=== PATIENT | female | born 1965 | race Caucasian/White ===

== ENCOUNTER 2018-02-27 05:55 | Day surgery (SDC) | payer OTHER ==
[~2018-02-27] VITALS: Ht 154.9 cm; Wt 90.7 kg
--- NOTE | ~2018-02-27 | OR ---
[facility] [address], [place] [address] Draft DATE OF OPERATION: SURGEON: Reny Aguilar MD PREOPERATIVE DIAGNOSES: Menometrorrhagia, endometrial polyp. POSTOPERATIVE DIAGNOSES: Menometrorrhagia and submucosal fibroid. PROCEDURES: Hysteroscopy and resection of submucosal fibroid. ANESTHESIA: General LMA. ESTIMATED BLOOD LOSS: 25 mL. DRAINS: None. INDICATIONS AND FINDINGS: The patient is a 52-year-old female, 4, para 3, AB 1, currently using control pills for control, who has been having abnormal bleeding over the past approximately five months. Evaluation in the office had an insufficient EMB. Hysterosonogram revealed a probable endometrial polyp. At the time of surgery, exam under anesthesia revealed a top-normal size uterus. It was regular in contour. Sounded to 11 cm. On hysteroscopy, the cavity was atrophic other than a large submucosal posterior fibroid. DESCRIPTION OF PROCEDURE: The patient was prepped and draped in the dorsal lithotomy position. A weighted speculum was placed. The anterior lip of the cervix was visualized and grasped with a single-tooth tenaculum. The cavity sounded to 11 cm. The endocervical canal was then dilated to a #8 dilator. The MyoSure device was placed and the cavity evaluated. The fibroid noted. Initially, the MyoSure Lite was tried, but this was insufficient to remove the fibroid as it was very firm. This was substituted for the MyoSure Lite. At this point, the device was used to down the fibroid. As it was decreased in size, it clearly came up from the wall of the uterus and at that point, it was very difficult to do any further excision as there was no way to apply any additional traction. Because PATIENT NAME: SO LANGFORD OPERATIVE REPORT DATE OF : 67 REPORT #: [id number] PHYSICIAN: RENY AGUILAR MD PCP: EVAN PITT DO REPORT IS CONFIDENTIAL AND NOT TO BE RELEASED WITHOUT AUTHORIZATION [facility] [address], [place] [address] Draft of that, the MyoSure device was removed and polyp forceps were introduced. Then, a small portion of fibroid was removed. The MyoSure device was replaced and there still appeared to be a fair amount of fibroid, which again was very difficult to remove with the reach. Following this, the MyoSure device was removed again and the polyp forceps introduced and a large piece of fibroid was removed. Following this, the procedure was terminated. She was observed and there was no evidence of ongoing heavy bleeding from the cervix. The tenaculum was removed and there was no bleeding from the tenaculum site. The procedure was then terminated with removal of the instruments and she was taken to recovery room in good condition. It was difficult to determine the fluid deficit, but was felt to be approximately 900 mL. Reny Aguilar MD PJW/MODL /[id number] cc: Evan Pitt DO Copies: EVAN PITT DO ~ PATIENT NAME: SO LANGFORDN OPERATIVE REPORT DATE OF : 67 REPORT #: [id number] PHYSICIAN: RENY AGUILAR MD PCP: EVAN PITT DO REPORT IS CONFIDENTIAL AND NOT TO BE RELEASED WITHOUT AUTHORIZATION
[~2018-02-27 05:55] MED LIST: ACAI BERRY500 MG PO; CENTRUM SILVER1 EAC3 PO; ECHINACEA125 MG PO; FLOMAX0.4 MG PO; FLONASE ALLERG9.9 ML NAS; MELATONIN5 M2 PO; NASACORT10.8 ML NAS; SRONYX1 EACH PO; SUDAFED PE PRE1 EAC1 PO; VITAMIN B-121000 MC3 PO; VITAMIN C500 M1 PO; VITAMIN D400 UNI4 PO
--- NOTE | 2018-02-27 08:36 | NUR ---
02/27/18 0836 Arely Liu 0820 PT ARRIVED TO PACU WITH ORAL AIRWAY IN PLACE. JAW TRUST NEEDED OFF AND ON TO MAINTAIN AIRWAY. PT REACTIVE TO PAINFUL STIMULI. RESP EVEN AND UNLABORED. 0825 PT WOKE TO PAINFUL STIMULI AND ORAL AIRWAY WAS REMOVED. PT DENIES PAIN AND NAUSEA. PT REORINETED TO PACU. 0827 MD AT BEDSIDE TALKING WITH PT. PT THEN BACK TO SLEEP. SMALL AMOUNT OF SNORING NOTED. 0831 PT O2 MASK REMOVED. O2 SAT 100%. PT MORE AWAKE AND TALKING TO RN. PT REPORTS NO PROBLEMS JUST FEELS "SLEEPY"
--- NOTE | 2018-02-27 08:58 | NUR ---
ICED WATER, COFFEE AND PUDDING GIVEN. CALL LIGHT W/IN REACH. SPOUSE @ BS.
[2018-02-27] MEDS ORDERED: MOTRIN IB200 MG PO (09:20)
[2018-02-27] MEDS ORDERED: NORCO 5-325 TA1 EACH PO (09:20)
--- NOTE | 2018-02-27 09:54 | NUR ---
amb to br voids 300mls pinkish urine. light cramping only. scant blood on pad.
== END 2018-02-27 10:10 | disposition home or self-care (01) ==
LOC: DS 05:55
PROVIDERS: Obstetrics & Gynecology
PROC: 0UB98ZZ Excision of Uterus, Via Natural or Artificial Opening Endoscopic (ICD-10-PCS; principal; 2018-02-27 06:45)
DX: D25.0 Submucous leiomyoma of uterus (principal); E66.9 Obesity, unspecified; G47.33 Obstructive sleep apnea (adult) (pediatric); R12 Heartburn; Z88.0 Allergy status to penicillin; Z68.37 Body mass index [BMI] 37.0-37.9, adult; Z79.899 Other long term (current) drug therapy; Z79.51 Long term (current) use of inhaled steroids; Z99.89 Dependence on other enabling machines and devices
CPT/HCPCS: 00952; J1100; J1885; J2250; J2405; J2704; J2765; J3010; J7120

== ENCOUNTER 2024-04-27 07:24 | Emergency (ER) | payer OTHER ==
[~2024-04-27] VITALS: Ht 154.9 cm; Wt 84.0 kg
[~2024-04-27 07:24] MED LIST changes: +CALCIUM-MAG-ZI1 EACH PO; +ELDERBERRY350 MG PO; +IRBESARTAN150 MG PO; +MOTRIN IB200 MG PO; +NORCO 5-325 TA1 EACH PO; +OMEPRAZOLE20 MG PO; +PHENTERMINE H37.5 M1 PO; +TOPIRAMATE25 MG PO; +VITAMIN D31250 MC1 PO
[2024-04-27] MEDS ORDERED: methylPREDNISolone SOD SUCC 125 MG/2 ML VIAL IV ONE (07:45)
[2024-04-27] MEDS ORDERED: FAMOTIDINE 20 MG/ 2 ML VIAL IV ONE (07:45)
[2024-04-27] MEDS ORDERED: diphenhydrAMINE HCL 50 MG/ML VIAL IV ONE (07:45)
[2024-04-27] MEDS ORDERED: PREDNISONE20 MG PO (09:10)
[2024-04-27 09:21] VITALS: BP 117/58
== END 2024-04-27 09:22 | disposition home or self-care (01) ==
LOC: ED 07:24
DX: T78.40XA Allergy, unspecified, initial encounter (principal); Z88.0 Allergy status to penicillin; Z79.899 Other long term (current) drug therapy
CPT/HCPCS: 96374; 96375; 99283-25; J1200; J2919

== ENCOUNTER 2024-08-28 06:50 | Day surgery (SDC) | payer OTHER ==
[2024-08-25 13:42] VITALS: BP 125/87
[~2024-08-28] VITALS: Ht 154.9 cm; Wt 85.5 kg
[~2024-08-28 06:50] MED LIST changes: +CLARITIN10 M2 PO; +HYDROCHLOROTH12.5 M1 PO; +MIDAZOLAM HCL 5 MG/5 ML VIAL IV PRN; +PREDNISONE20 MG PO; +fentaNYL citrate 100 MCG/2 ML VIAL IV PRN
[2024-08-28] MEDS ORDERED: LIDOCAINE HCL 1% 5 ML SDV INJ ONE (07:00)
[2024-08-28] MEDS ORDERED: LACTATED RINGER'S 1,000 ML IV SCH (07:00)
[2024-08-28] MEDS ORDERED: CEFAZOLIN SODIUM 2 GM/20 ML SYR IV SCH (07:00)
[2024-08-28] MEDS ORDERED: IBLOOD GLUCOSE TEST STRIP 1 EA TEST VI PRN (07:00)
[2024-08-28 07:14] VITALS: BP 133/71
[2024-08-28 07:50] LABS: ANION GAP 12.8 (7-21); BUN/CREATININE RATIO 14.49 (6.0-28.6); CALCIUM 9.4 mg/dL (8.5-10.1); CREATININE, SERUM 0.69 mg/dL (0.55-1.02); POTASSIUM 2.8 mmol/L (3.5-5.1)
[2024-08-28] MEDS ORDERED: CLINDAMYCIN PHOSPHATE/D5W 900 MG/50 ML PIGGYBACK ONE (08:26)
--- NOTE | 2024-08-28 09:12 | NUR ---
08/28/24 0912 Parth Mckee 0901: PT ARRIVED TO PACU VIA STRECHER. PT ON RA ON ARRIVAL. PT REACTIVE AND ASKING QUESTIONS. 0910: MD AT BEDSIDE.
[2024-08-28 09:22] VITALS: BP 126/88
[2024-08-28] MEDS ORDERED: LIDOCAINE HCL 2% 5 ML SDV ONE (10:02)
[2024-08-28] MEDS ORDERED: propofoL 200 MG/20 ML VIAL ONE (10:02)
--- NOTE | 2024-08-28 10:09 | OR ---
[facility] [address] [place], [place] [address] Signed DATE OF OPERATION: 08/28/2024 SURGEON: Adalid Wang MD PREOPERATIVE DIAGNOSES: 1. Mother with colon cancer in early 70s and from the colon cancer at age 78. 2. Personal history of hyperplastic polyps in 2018 at age 52. 3. A lipoma in distal right colon. 4. Diverticulosis. 5. Internal and external hemorrhoids. POSTOPERATIVE DIAGNOSES: 1. Minimal internal and external hemorrhoids. 2. Minimal left-sided diverticulosis. PROCEDURE: Colonoscopy without biopsy. ESTIMATED BLOOD LOSS: None. INDICATIONS: Frances is a 58-year-old female, asked to see me for a followup colonoscopy. I have helped Frances and her for many years. I did her initial colonoscopy in 2018 at the age of 52. She had just a tiny hyperplastic polyp removed. She has a lipoma in distal right colon. She has a little diverticulosis along with internal and external hemorrhoids. She did well with Versed and fentanyl. In the meantime, she now has a sacral stimulator. She also has sleep apnea. Consequently, we used monitored anesthesia care with propofol infusion on this occasion. That worked out very nicely. She said penicillin made her lips and tongue swell. She ended up in the emergency room. Consequently, we decided to switch that over to clindamycin today. That worked out nicely. Also her mother was diagnosed with colon cancer in her early 70s and ended up dying from the colon cancer about age 78. Frances understands colonoscopy quite well. There is risk including, but not limited to gas bloating, crampy abdominal pain, bleeding, perforation requiring surgery, and missed diagnosis. We also reviewed the written instructions for the bowel prep line by line. As always, her will be taking her home afterwards. She had expressed understanding and wished to proceed. DESCRIPTION OF PROCEDURE: Frances was taken into our endoscopy suite and placed in the left lateral decubitus Electronically Signed By: ADALID WANG MD 08/28/24 1009 PATIENT NAME: FRANCES LANGFORD OPERATIVE REPORT DATE OF : 67 REPORT #: [id number] PHYSICIAN: ADALID WANG MD PCP: LAURIE OVALLE NP REPORT IS CONFIDENTIAL AND NOT TO BE RELEASED WITHOUT AUTHORIZATION [facility] [address] [place], [place] [address] Signed position. She was given monitored anesthesia care propofol infusion per our nurse printing worker supervisor. A digital rectal exam was performed. She has very little in the way of external hemorrhoids. Good sphincter tone. No masses. The adult colonoscope was introduced and advanced all the way around into the cecum under direct visualization of camera. It took just a little extra propofol and some abdominal compression to get it down the right colon into the cecum itself. Her prep was good. She had a couple areas of particulate stool matter I could not quite suction out completely. We could easily see the appendiceal orifice and ileocecal valve. The scope was slowly withdrawn. We took several pictures throughout for photodocumentation. We did see the lipoma on this occasion in the distal right colon. We did see some diverticula in the left colon. They were small to moderate in size, few in number and scattered about. Once in the rectum, the scope was retroflexed and we could see she does have minimal internal hemorrhoid columns. After this, the gas was suctioned out, colonoscope removed. Frances tolerated the procedure quite well. RECOMMENDATIONS: Frances can return in 5 years for repeat screening colonoscopy due to her mother's history of colon cancer. Adalid Wang MD ALB/MODL /[id number] cc: MD Laurie Serrano NP Copies: ADALID WANG MD ~ Electronically Signed By: ADALID WANG MD 08/28/24 1009 PATIENT NAME: FRANCES LANGFORD OPERATIVE REPORT DATE OF : 67 REPORT #: [id number] PHYSICIAN: ADALID WANG MD PCP: LAURIE OVALLE NP REPORT IS CONFIDENTIAL AND NOT TO BE RELEASED WITHOUT AUTHORIZATION
== END 2024-08-28 09:30 | disposition home or self-care (01) ==
LOC: DS 06:50
PROVIDERS: Nurse Anesthetist, Certified Registered; ATTEND Colon & Rectal Surgery
PROC: 0DJD8ZZ Inspection of Lower Intestinal Tract, Via Natural or Artificial Opening Endoscopic (ICD-10-PCS; principal; 2024-08-28 08:35)
DX: Z12.11 Encounter for screening for malignant neoplasm of colon (principal); D17.5 Benign lipomatous neoplasm of intra-abdominal organs; K57.30 Diverticulosis of large intestine without perforation or abscess without bleeding; K64.4 Residual hemorrhoidal skin tags; K64.8 Other hemorrhoids; G47.33 Obstructive sleep apnea (adult) (pediatric); E78.5 Hyperlipidemia, unspecified; E66.9 Obesity, unspecified; Z68.34 Body mass index [BMI] 34.0-34.9, adult; Z86.0102 Personal history of hyperplastic colon polyps; Z79.899 Other long term (current) drug therapy; Z88.0 Allergy status to penicillin; Z88.8 Allergy status to other drugs, medicaments and biological substances; Z99.89 Dependence on other enabling machines and devices; Z80.0 Family history of malignant neoplasm of digestive organs
CPT/HCPCS: 00811; 36415; 80048; J0690; J2003; J2704; J7121